=== PATIENT | male | born 1950 | race Caucasian/White ===

== ENCOUNTER 2018-05-27 08:07 | Day surgery (SDC) | payer MEDICARE, BC ==
[~2018-05-27 08:07] MED LIST: Ciprofloxacin in D5W 400 MG in Premix Bag 1 BAG IV SCH; Lactated Ringers 1,000 ML IV SCH
--- NOTE | 2018-05-27 09:29 | PCM.PREANE ---
Preanesthetic Assessment - Procedure Proposed Procedure: colonoscopy - Anesthesia/Transfusion/Family Hx Anesthesia History: Prior Anesthesia Without Reaction Family History of Anesthesia Reaction: No Transfusion History: No Prior Transfusion(s) - Review of Systems Pulmonary: Shortness of Breath, Cough, Other (COPD, noncompliant with inhaler) Cardiovascular: Dyspnea on Exertion, Other (denies CP and AL) Gastrointestinal: Diarrhea Neurological: No Symptoms Other: Reports: Neck Pain (chronic neck and back pain) - Physical Assessment O2 Sat by Pulse Oximetry: 94 Respiratory Rate: 16 Vital Signs: Last Vital Signs Temp 96.1 F 05/27/18 09:00 Pulse 87 05/27/18 09:00 Resp 16 05/27/18 09:00 BP 134/91 H 05/27/18 09:00 Pulse Ox 94 L 05/27/18 09:00 Height: 5 ft Weight: 65.771 kg ASA Class: 3 Mental Status: Alert & Oriented x3 Airway Class: Mallampati = 2 Dentition: Reports: Broken Tooth/Teeth, Missing Tooth/Teeth (poor dentation) ROM/Head Extension: Full Lungs: Decreased Breath Sounds Cardiovascular: Regular Rate - Allergies Allergies/Adverse Reactions: Allergies Allergy/AdvReac Type Severity Reaction Status Date / Time alendronate sodium Allergy Hives Verified 05/23/18 11:20 cefazolin [From Ancef] Allergy Itching Verified 05/23/18 11:20 Dairy Products Allergy Abdominal Verified 05/23/18 11:20 Pain - Blood Blood Available: No Product(s) Available: None - Anesthesia Plan Pre-Op Medication Ordered: None - Acknowledgements Anesthesia Type Planned: MAC Pt an Appropriate Candidate for the Planned Anesthesia: Yes Alternatives and Risks of Anesthesia Discussed w Pt/Guardian: Yes Pt/Guardian Understands and Agrees with Anesthesia Plan: Yes PreAnesthesia Questionnaire HEENT History: Reports: Cataract, Hard of Hearing, Other (See Below) Other HEENT History: uses reading glasses, had upper denture but lost it, does not have hearing aides Cardiovascular History: Reports: None Respiratory History: Reports: COPD Other Respiratory History: does not use inhaler Gastrointestinal History: Reports: Colon Polyp Genitourinary History: Reports: BPH Musculoskeletal History: Reports: Back Pain, Chronic, Fracture, Osteoarthritis, Osteoporosis Other Musculoskeletal History: hx of fx clavicle and compression fx of thorasic vertebrate Neurological History: Reports: Other (See Below) Other Neuro History: hx of shingles with continued neuralgia Psychiatric History: Reports: None Other Psychiatric History: hx alcohol abuse Endocrine/Metabolic History: Reports: None Hematologic History: Reports: None Immunologic History: Reports: None Oncologic (Cancer) History: Reports: None Dermatologic History: Reports: None - Past Surgical History Head Surgeries/Procedures: Reports: None HEENT Surgical History: Reports: Cataract Surgery GI Surgical History: Reports: Colonoscopy, Hernia, Inguinal Musculoskeletal Surgical History: Reports: Hip Replacement, Shoulder Surgery, Other (See Below) Other Musculoskeletal Surgeries/Procedures:: hx of left RTCR and right REZA, has had wrist surgery to "clean out arthritis" and bone spurs removed from neck - SUBSTANCE USE Smoking Status *Q: Former Smoker Tobacco Use Within Last Twelve Months: No Days Per Week of Alcohol Use: 4 Number of Drinks Per Day: 2 Total Drinks Per Week: 8 Recreational Drug Use History: No - HOME MEDS Home Medications: Home Meds Calcium Carbonate/Vitamin D3 [Calcium 600 + Vit D 400 Tablet] 1 tab PO DAILY [History] Cholecalciferol (Vitamin D3) [Vitamin D3] 1 tab PO DAILY 02/11/15 [History] Gabapentin [Neurontin] 400 mg PO QID 05/23/18 [History] - CURRENT (IN HOUSE) MEDS Current Meds: Current Medications Lactated Ringer's (Ringers, Lactated) 1,000 mls @ 125 mls/hr IV ASDIRECTED [facility] Last Admin: 05/27/18 09:18 Dose: 125 mls/hr Discontinued Medications Ciprofloxacin/Dextrose 400 mg/ (Premix) 200 mls @ 200 mls/hr IV Q24H [facility] Stop: 05/27/18 08:59
[2018-05-27] MEDS ORDERED: Propofol 200 MG/20 ML SDV ONE (10:06)
[2018-05-27] MEDS ORDERED: Lidocaine 2% 5 ML SDV ONE (10:06)
[2018-05-27] MEDS ORDERED: fentaNYL 100 MCG/2 ML SDV ONE (10:07)
[2018-05-27] MEDS ORDERED: Midazolam 1 MG/ML 2 ML SDV ONE (10:07)
[2018-05-27] MEDS ORDERED: diphenhydrAMINE 50 MG/ML SDV ONE (10:26)
--- NOTE | 2018-05-27 11:06 | PCM.OPNOTE ---
- General Post-Op/Procedure Note Date of Surgery/Procedure: 05/27/18 Operative Procedure(s): Colonoscopy Pre Op Diagnosis: Personal history of colon polyps Post-Op Diagnosis: No evidence of neoplasia Anesthesia Technique: MAC (ASA III) Primary Surgeon: Jeff Damon Apple Sorter: Serena Xiong Condition: Good Free Text/Narrative:: DICTATION [id number] CPT CODE [id number]
[2018-05-27] MEDS ORDERED: Lactated Ringers 1,000 ML IV SCH (11:15)
[2018-05-27 11:45] VITALS: BP 136/79
--- NOTE | 2018-05-27 13:10 | OR ---
SURGEON: Jeff Damon M.D. DATE OF PROCEDURE: 05/27/2018 OPERATION PERFORMED: Colonoscopy. ANESTHESIA: MAC. ASA CLASSIFICATION: III. PREOPERATIVE DIAGNOSIS: Personal history of colon polyps. POSTOPERATIVE DIAGNOSIS: No evidence of neoplasia. DESCRIPTION OF PROCEDURE: The patient was taken to the endoscopy room and positioned on the endoscopy table in the left lateral decubitus position. Time-out was called for appropriate identification of the patient and procedure. Monitored anesthesia care was provided. The colonoscope was inserted into the rectum and advanced with minimal difficulty to the cecum where the colonoscope was retroflexed to visualize the ascending colon from below. The colonoscope was then straightened and slowly withdrawn. The cecum, ascending colon, hepatic flexure, transverse colon, splenic flexure, descending colon, sigmoid colon, and rectum were very well visualized. No tumors, polyps, diverticula, or angiodysplastic changes were noted anywhere in the lower gastrointestinal tract. The colonoscope was withdrawn to the rectum and retroflexed to visualize the anal orifice from above. Again, no tumors or polyps were seen, and there were no acute hemorrhoidal changes. The colonoscope was then straightened, the rectum aspirated, and the colonoscope removed. The patient tolerated the procedure well and was taken to recovery room in satisfactory condition. CLOTILDE / MITRA /[id number]
== END 2018-05-27 12:35 | disposition home or self-care (01) ==
LOC: MW.SDS 08:07
PROVIDERS: ATTEND Surgery
DX: Z12.11 Encounter for screening for malignant neoplasm of colon (principal); J43.9 Emphysema, unspecified; M81.0 Age-related osteoporosis without current pathological fracture; Z87.891 Personal history of nicotine dependence; Z86.010 Personal history of colon polyps; Z79.899 Other long term (current) drug therapy; Z88.8 Allergy status to other drugs, medicaments and biological substances; Z91.011 Allergy to milk products; Z88.1 Allergy status to other antibiotic agents
CPT/HCPCS: G0105; J0744; J2001; J2250; J2704; J3010; J7120

== ENCOUNTER 2024-02-29 19:47 | Emergency (ER) | payer MEDICARE, BC ==
[2024-02-29 22:12] VITALS: BP 118/80; PULSE 82
== END 2024-02-29 21:12 | disposition home or self-care (01) ==
LOC: MW.ED 19:47
DX: R09.89 Other specified symptoms and signs involving the circulatory and respiratory systems (principal); J44.9 Chronic obstructive pulmonary disease, unspecified; Z96.649 Presence of unspecified artificial hip joint; Z88.8 Allergy status to other drugs, medicaments and biological substances; Z91.011 Allergy to milk products; Z79.899 Other long term (current) drug therapy; Z75.8 Other problems related to medical facilities and other health care
CPT/HCPCS: 99283

== ENCOUNTER 2024-12-22 22:38 | Emergency (ER) | payer MEDICARE, BC ==
[2024-12-22 23:00] VITALS: BP 121/73; PULSE 87
== END 2024-12-22 23:47 ==
LOC: MW.ED 22:38
DX: F10.10 Alcohol abuse, uncomplicated (principal); J44.9 Chronic obstructive pulmonary disease, unspecified; M19.90 Unspecified osteoarthritis, unspecified site; Z79.899 Other long term (current) drug therapy; Z88.8 Allergy status to other drugs, medicaments and biological substances
CPT/HCPCS: 99283